=== PATIENT | female | born 1980 | race Caucasian/White ===

== ENCOUNTER 2021-06-22 20:49 | Emergency (ER) | payer OTHER ==
[~2021-06-22] VITALS: Ht 162.6 cm; Wt 86.0 kg
[~2021-06-22 20:49] MED LIST: AMOXICILLIN/CL875 MG PO; AMOXICILLIN500 MG PO; ANTIVERT12.5 MG PO; AUGMENTIN500TAB PO; AUGMENTIN875TAB PO; BACTRIM DS1 TAB PO; CIPRO XR500 M2; DOXYCYCL HYC100 MG PO; EXCEDRI2; FLAGYL500 MG OR; LASIX40 MG PO; LISINOP/HCTZ1 TAB PO; LISINOPRIL10 MG; LISINOPRIL10 MG PO; LISINOPRIL5 MG PO; MUPIROCIN2 % EX; NO; NO HOME MEDS; PAROXETINE20 MG PO; PAXIL30 MG PO; ROCEPHIN 1 GM1 GM IM; VENTOLIN HFA IN; ZITHROMAX250 MG PO
[2021-06-22 21:22] LABS: HEMATOCRIT 33.4 % (37.0-47.0); HEMOGLOBIN 11.3 g/dl (12.0-16.0); IMMATURE GRANULOCYTES 0.1 % (0.0-5.0); MEAN CELL VOLUME 89.8 fL CALC (80.0-100.0); MEAN CORPUSCULAR HGB 30.4 pG CALC (26.0-32.0); MEAN CORPUSCULAR HGB CONC 33.8 g/dL CAL (32.0-36.0); NEUT# 6.06 thou/uL (2.00-7.15); RED BLOOD COUNT 3.72 mill/uL (4.20-5.60); RED CELL DISTRI WIDTH 12.1 % (11.5-15.5)
[2021-06-22 21:41] LABS: ALBUMIN 3.5 g/dL (3.2-5.0); ALKALINE PHOSPHATASE 74 u/l (38-126); BUN 9 mg/dL (7-17); BUN/CREATININE RATIO 11 (12-20 (CALC)); CARBON DIOXIDE 23 mmol/l (22-30); CHLORIDE 100 mmol/l (95-108); CREATININE 0.8 mg/dL (0.5-1.0); GFR > 60 ML/MIN (>=60 (CALC)); GFR FOR AFR.AMER. > 60 ML/MIN (>=60 (CALC)); TOTAL PROTEIN 6.7 g/dL (6.3-8.2)
[2021-06-22 21:42] LABS: ANION GAP 12 (6-22 (CALC)); BILIRUBIN, TOTAL 0.6 mg/dL (0.0-1.4); SGOT/AST 32 u/l (14-36); SODIUM 132 mmol/l (137-146)
[2021-06-22 21:53] LABS: MYOGLOBIN 32 ng/mL (0 - 62)
[2021-06-22 22:34] LABS: URINE BILIRUBIN - DIPSTICK NEGATIVE (NEGATIVE); URINE BLOOD DIPSTICK SMALL (NEGATIVE); URINE COLOR YELLOW; URINE GLUCOSE - DIPSTICK 100 mg/dL (NEGATIVE); URINE KETONE NEGATIVE (NEGATIVE); URINE PROTEIN - DIPSTICK NEGATIVE (NEG-TRACE); URINE UROBILINOGEN - DIPSTICK 0.2 E.U./dL (0.2)
[2021-06-22 22:36] LABS: URINE LEUK ESTERASE SMALL (NEGATIVE); URINE NITRITE - DIPSTICK NEGATIVE (Negative)
[2021-06-22 22:43] LABS: URINE SQUAMOUS EPITHELIAL CELL FEW EPI/hpf (0-FEW)
[2021-06-22] MEDS ORDERED: BACTRIM DS1 TAB PO (22:52)
[2021-06-22 23:11] VITALS: BP 120/72
== END 2021-06-22 23:09 | disposition home or self-care (01) ==
LOC: ED 20:49
PROVIDERS: Family Medicine
DX: N39.0 Urinary tract infection, site not specified (principal); E87.6 Hypokalemia; I42.9 Cardiomyopathy, unspecified; T50.996A Underdosing of other drugs, medicaments and biological substances, initial encounter; Z91.128 Patient's intentional underdosing of medication regimen for other reason; F17.210 Nicotine dependence, cigarettes, uncomplicated; B96.20 Unspecified Escherichia coli [E. coli] as the cause of diseases classified elsewhere